=== PATIENT | female | born 1995 | race Caucasian/White ===

== ENCOUNTER 2018-07-14 07:10 | Inpatient (IN) | payer BC ==
[2018-07-14] MEDS ORDERED: Sodium Chloride 0.9% 2.5 ML Syringe FLUSH PRN (07:13)
[2018-07-14] MEDS ORDERED: Carboprost Tromethamine 250 MCG/1 ML Amp IM PRN (07:13)
[2018-07-14] MEDS ORDERED: Sodium Chloride 0.9% 10 ML SDV IV PRN (07:13)
[2018-07-14] MEDS ORDERED: Sodium Chloride 0.9% 10 ML Syringe FLUSH PRN (07:13)
[2018-07-14] MEDS ORDERED: Lidocaine 1% 50 ML MDV INJECT PRN (07:13)
[2018-07-14] MEDS ORDERED: Tranexamic Acid 1,000 MG in Sodium Chloride 0.9% 100 ML IV PRN (07:13)
[2018-07-14] MEDS ORDERED: Butorphanol 1 MG/ML SDV IVPUSH PRN (07:13)
[2018-07-14] MEDS ORDERED: Misoprostol 200 MCG Tab PO PRN (07:13)
[2018-07-14] MEDS ORDERED: Water For Irrigation,Sterile 1,000 ML Container IRR PRN (07:13)
[2018-07-14] MEDS ORDERED: Ondansetron 4 MG/2 ML SDV IV PRN (07:13)
[2018-07-14] MEDS ORDERED: Methylergonovine 0.2 MG/1 ML Amp IM PRN (07:13)
[2018-07-14] MEDS ORDERED: Oxytocin/0.9 % Sodium Chloride 30 UNIT/500 ML BAG IV SCH (07:15)
[2018-07-14] MEDS: Lactated Ringers 1,000 ML IV SCH ×3 (14:00→19:58)
--- NOTE | 2018-07-14 18:37 | PCM.PREANE ---
Preanesthetic Assessment - Anesthesia/Transfusion/Family Hx Anesthesia History: Prior Anesthesia Reaction Other Type of Anesthesia Reaction Comment: Patient states she had a hard time breathing Family History of Anesthesia Reaction: No Transfusion History: No Prior Transfusion(s) - Review of Systems General: No Symptoms Pulmonary: No Symptoms Cardiovascular: No Symptoms Gastrointestinal: No Symptoms Neurological: No Symptoms Other: Reports: None - Physical Assessment NPO Status Date: 07/14/18 Height: 5 ft 6 in Weight: 68.039 kg ASA Class: 2 Mental Status: Alert & Oriented x3 Airway Class: Mallampati = 2 Dentition: Reports: Normal Dentition Thyro-Mental Finger Breadths: 3 Mouth Opening Finger Breadths: 3 ROM/Head Extension: Full Lungs: Clear to Auscultation, Normal Respiratory Effort Cardiovascular: Regular Rate, Regular Rhythm - Lab Values: Laboratory Last Values WBC 14.46 K/uL (4.0-11.0) H 07/14/18 07:40 RBC 4.53 M/uL (4.30-5.90) 07/14/18 07:40 Hgb 12.1 g/dL (12.0-16.0) 07/14/18 07:40 Hct 37.0 % (36.0-46.0) 07/14/18 07:40 MCV 81.7 fL (80.0-98.0) 07/14/18 07:40 MCH 26.7 pg (27.0-32.0) L 07/14/18 07:40 MCHC 32.7 g/dL (31.0-37.0) 07/14/18 07:40 RDW Std Deviation 39.6 fl (28.0-62.0) 07/14/18 07:40 RDW Coeff of Susan 13 % (11.0-15.0) 07/14/18 07:40 Plt Count 300 K/uL (150-400) 07/14/18 07:40 MPV 11.20 fL (7.40-12.00) 07/14/18 07:40 Nucleated RBC % 0.0 /100WBC 07/14/18 07:40 Nucleated RBCs # 0 K/uL 07/14/18 07:40 Blood Type O POSITIVE 07/14/18 07:40 Antibody Screen NEGATIVE 07/14/18 07:40 - Allergies Allergies/Adverse Reactions: Allergies Allergy/AdvReac Type Severity Reaction Status Date / Time No Known Allergies Allergy Verified 06/29/18 08:30 - Acknowledgements Anesthesia Type Planned: Epidural Pt an Appropriate Candidate for the Planned Anesthesia: Yes Alternatives and Risks of Anesthesia Discussed w Pt/Guardian: Yes Pt/Guardian Understands and Agrees with Anesthesia Plan: Yes PreAnesthesia Questionnaire - Past Health History Medical/Surgical History: Denies Medical/Surgical History HEENT History: Reports: None Cardiovascular History: Reports: None Respiratory History: Reports: None Gastrointestinal History: Reports: GERD Genitourinary History: Reports: None [employer] History: Reports: Ectopic , , Spontaneous : 3 Para: 1 LMP (Approximate): Musculoskeletal History: Reports: None Neurological History: Reports: None Psychiatric History: Reports: None Endocrine/Metabolic History: Reports: None Hematologic History: Reports: Other (See Below) (MTHFR Gene carrier) Immunologic History: Reports: None Oncologic (Cancer) History: Reports: None Dermatologic History: Reports: None - Infectious Disease History Infectious Disease History: Reports: None - Past Surgical History HEENT Surgical History: Reports: Other (See Below) (Molar Extraction) Female Surgical History: Reports: Section (2015 x 1) - SUBSTANCE USE Smoking Status *Q: Former Smoker Tobacco Use Within Last Twelve Months: No Second Hand Smoke Exposure: No Recreational Drug Use History: No - HOME MEDS Home Medications: Home Meds Aspirin [Children's Aspirin] 1 tab PO DAILY 06/29/18 [History] Ondansetron [Zofran ODT] 1 tab PO PRN 06/29/18 [History] Oxymetazoline HCl [Vicks Sinex] 06/29/18 [History] PNV95/Ferrous Fumarate/FA [ Tablet] 1 tab PO DAILY 06/29/18 [History] - CURRENT (IN HOUSE) MEDS Current Meds: Current Medications Butorphanol Tartrate (Stadol) 1 mg IVPUSH Q1H PRN PRN Reason: Pain Last Admin: 07/14/18 15:30 Dose: 1 mg Carboprost Tromethamine (Hemabate Ds) 250 mcg IM ASDIRECTED PRN PRN Reason: Post Hemorrhage Lactated Ringer's (Ringers, Lactated) 1,000 mls @ 150 mls/hr IV ASDIRECTED [facility] Oxytocin/Sodium Chloride (Oxytocin 30 Unit/500 Ml-Ns) 30 unit in 500 mls @ 500 mls/hr IV TITRATE [facility] Tranexamic Acid 1,000 mg/ (Sodium Chloride) 110 mls @ 660 mls/hr IV ONETIME PRN PRN Reason: Bleeding Lidocaine HCl (Xylocaine 1%) 50 ml INJECT ONETIME PRN PRN Reason: Laceration repair Methylergonovine Maleate (Methergine) 0.2 mg IM ASDIRECTED PRN PRN Reason: Post Hemorrhage Misoprostol (Cytotec) 200 mcg PO ONETIME PRN PRN Reason: Post Hemorrhage Ondansetron HCl (Zofran) 4 mg IV Q6H PRN PRN Reason: Nausea/Vomiting Sodium Chloride (Saline Flush) 10 ml FLUSH ASDIRECTED PRN PRN Reason: Keep Vein Open Sodium Chloride (Saline Flush) 2.5 ml FLUSH ASDIRECTED PRN PRN Reason: Keep Vein Open Sodium Chloride (Normal Saline) 10 ml IV ASDIRECTED PRN PRN Reason: IV Use Sterile Water (Sterile Water For Irrigation) 1,000 ml IRR ASDIRECTED PRN PRN Reason: delivery
[2018-07-14] MEDS ORDERED: Ropivacaine HCl/PF 100 ML ONE (18:45)
[2018-07-14] MEDS ORDERED: fentaNYL 100 MCG/2 ML SDV ONE ×2 (18:45→23:17)
[2018-07-14] MEDS ORDERED: ePHEDrine 50 MG/ML SDV ONE ×2 (19:46→22:43)
[2018-07-14] MEDS ORDERED: Bupivacaine 0.5% 10 ML SDV ONE (22:30)
[2018-07-14] MEDS ORDERED: Citric Acid/Sodium Citrate Solution 30 ML Cup PO ONE (22:34)
[2018-07-14] MEDS ORDERED: ceFAZolin 1 GM in Premix Bag 1 BAG IV ONE (22:34)
[2018-07-14] MEDS ORDERED: Ondansetron 4 MG/2 ML SDV ONE (22:39)
[2018-07-14] MEDS ORDERED: Sodium Chloride 0.9% 20 ML ONE ×3 (22:43→23:18)
[2018-07-14] MEDS ORDERED: ceFAZolin 1 GM Vial ONE (22:43)
[2018-07-14] MEDS ORDERED: Oxytocin/0.9 % Sodium Chloride 30 UNIT/500 ML BAG ONE (22:49)
[2018-07-14] MEDS ORDERED: Morphine PF 10 MG/10 ML SDV ONE (23:09)
[2018-07-14] MEDS ORDERED: Lanolin 100% Cream 7 GM Tube TOP PRN (23:42)
[2018-07-14] MEDS ORDERED: Acetaminophen/oxyCODONE 325-5 MG Tab PO PRN (23:42)
[2018-07-14] MEDS ORDERED: Simethicone 80 MG Tab.Chew PO PRN (23:42)
[2018-07-14] MEDS ORDERED: Aluminum Hydroxide/Magnesium Hydroxide/Simethicone Susp 30 ML Cup PO PRN (23:42)
[2018-07-14] MEDS ORDERED: diphenhydrAMINE 50 MG/ML SDV IVPUSH PRN (23:42)
[2018-07-14] MEDS ORDERED: Ondansetron 4 MG/2 ML SDV IVPUSH PRN (23:42)
[2018-07-14] MEDS ORDERED: Bisacodyl 10 MG Supp RECTAL PRN (23:42)
[2018-07-14] MEDS ORDERED: Lactated Ringers 1,000 ML IV SCH (23:45)
--- NOTE | 2018-07-14 23:53 | PCM.OPNOTE ---
- General Post-Op/Procedure Note Date of Surgery/Procedure: 07/14/18 Operative Procedure(s): Repeat c section Findings: Viable female APGARs 8, 9 weight 3120gm, Intact placenta with 3 V cord Pre Op Diagnosis: 40/3 week IUP. Previous c section, desires TOLAC. Arrest of dilation Post-Op Diagnosis: Same Anesthesia Technique: Epidural Primary Surgeon: Kaleigh Ware Fluid Replacement, Intraop: 1,000 EBL in mLs: 500 Complications: None known Condition: Good Free Text/Narrative:: Dictation [id number]
[2018-07-15] MEDS: Ketorolac 30 MG/ML SDV IVPUSH SCH ×5 (00:01→23:41)
[2018-07-15] MEDS ORDERED: Naloxone 0.4 MG/ML Syringe IVPUSH PRN (00:46)
[2018-07-15] MEDS ORDERED: diphenhydrAMINE 50 MG/ML SDV IVPUSH PRN (00:46)
[2018-07-15] MEDS ORDERED: Nalbuphine 10 MG/1 ML Vial IVPUSH PRN (00:46)
--- NOTE | 2018-07-15 00:46 | PCM.POSTAN ---
POST ANESTHESIA ASSESSMENT - MENTAL STATUS Mental Status: Alert, Oriented - VITAL SIGNS Pulse Rate: 86 SaO2: 98 Resp Rate: 20 Blood Pressure: 109/62 - RESPIRATORY Respiratory Status: Respiratory Rate WNL, Airway Patent, O2 Saturation Stable - CARDIOVASCULAR CV Status: Pulse Rate WNL, Blood Pressure Stable - GASTROINTESTINAL GI Status: No Symptoms - PAIN Pain Score: 1 - POST OP HYDRATION Hydration Status: Adequate & Stable
--- NOTE | 2018-07-15 04:09 | OR ---
SURGEON: Kaleigh Ware M.D. DATE OF PROCEDURE: 07/14/2018 PREOPERATIVE DIAGNOSIS: 1. 40 and 3 weeks intrauterine . 2. Previous section, desires trial of labor after . 3. Arrest of dilation. POSTOPERATIVE DIAGNOSES: 1. 40 and 3-weeks intrauterine . 2. Previous section, desires trial of labor after . 3. Arrest of dilation. PROCEDURE PERFORMED: Repeat low-transverse section. ANESTHESIA: Epidural. ESTIMATED BLOOD LOSS: 500 mL. FLUIDS: 1000 mL of crystalloid in OR. FINDINGS: Viable female scores of 8 at 1 minute and 9 at 5 minutes. Weight of 3120 g on delivery, intact placenta, 3-vessel cord. Normal-appearing pelvis. COMPLICATIONS: None. DISPOSITION: The patient to PACU. to nursery. INDICATIONS: Melissa is a 23-year-old G2, P1, at 40 and 3 weeks gestational age who was admitted on the morning of 07/14/2018, electing to undergo amniotomy to see if this would help labor ensue. She did respond to the amniotomy, was found initially to be 1 to 2 cm and began having regular contractions, became increasingly uncomfortable throughout the afternoon, however, made minimal cervical change. She became uncomfortable and planned of receiving epidural in the early evening of 07/14/2018. Category 1 heart tones overall. Even with the epidural, however, there was minimal cervical change. She really did not progress beyond 2-3 cm, 70% effaced, -2 station. At this juncture, the patient is ready to proceed with delivery. Risks of the procedure have been discussed. Proper consent was obtained. DESCRIPTION OF PROCEDURE: The patient was taken to the operating room, where she underwent bolus of her epidural. She was placed in modified dorsal lithotomy position with leftward tilt and SCDs to lower extremities, [place] to gravity. She was prepped and draped in the usual sterile fashion. Received Ancef prophylactically. Time-out was performed. After being prepped and draped in usual sterile fashion, anesthesia was tested and found to be adequate. Previous Pfannenstiel scar was now excised. Subcutaneous tissue was incised down the level of the rectus fascia. The fascia was then incised in the midline lateralized on either side sharply and bluntly. The superior aspect of the fascia was tented up, dissected sharply and bluntly away from underlying muscles. Similar aspect was performed in the inferior aspect of the fascia. Rectus muscle was in the midline. The peritoneum was tented upward and entered. Rectus muscles and peritoneum were now lateralized bluntly. Uterine position and position palpated. Self- retaining retractor was gently placed. Uterovesical reflection was visualized. Bladder flap was created sharply and bluntly. Bladder was mobilized away from lower uterine segment. Low transverse hysterotomy was now performed. Uterine cavity was entered with blunt end of the scalpel. Clear fluid was still noted to be present. The hysterotomy was lateralized bluntly. The 's head was flexed and found to be in direct OP position. Fundal pressure was applied. Head was delivered followed by anterior shoulder, posterior shoulder, and remaining body without difficulty. The infant's oropharynx and nares bulb suctioned. Per the patient's request, delayed cord clamping was now performed. After the cord had been cut, was handed off to attending nursing staff. Cord arterial, cord venous, cord blood sampling were obtained. The placenta was delivered. Uterine cavity was cleared of all clot and debris. Hysterotomy was repaired using 0 Vicryl in continuous running locked fashion followed by re- imbricating layer in continuous running fashion. Any areas of oozing were cauterized. There were 2 areas of persistent bleeding along the midline and left lateral aspect that were replicated with [id number] suture x2. Hemostasis thereafter evident. Posterior aspect of the uterus was inspected with no defects or hematomas found be forming. Region was well irrigated and suction dried. Uterus returned to the abdominal cavity. Colonic gutters were cleared of all clot and debris, well irrigated and suction dried. The self- retaining retractor gently removed. Bladder blade was placed. Hysterotomy was inspected and found to be hemostatic. The bladder blade was removed. Rectus muscle and peritoneum were reapproximated using 0 Vicryl in inverted mattress suture technique. Anterior aspect of the muscle and posterior aspect of the fascia closely inspected. Any areas of oozing were cauterized. The rectus fascia was reapproximated using 0 Vicryl in continuous running fashion beginning laterally in the side and meeting in the midline. Subcutaneous tissues were irrigated and suction dried. Any areas of oozing were cauterized. The deep subcutaneous tissues were reapproximated using 3-0 plain in continuous running fashion. The skin edges were now reapproximated using 3-0 Vicryl in a Ferny needle subcuticular fashion. Half-inch Steri-Strips with Mastisol were now placed. The uterus remained firm. Sponge, instruments and needle counts were correct x2. The patient tolerated the procedure well. She will go to PACU in stable condition and infant to nursery. NEERAJ / GONSALO /[id number]
--- NOTE | 2018-07-15 07:27 | PCM48HPAN ---
Post Anesthesia Note - EVALUATION WITHIN 48HRS OF ANESTHETIC Vital Signs in Normal Range: Yes Patient Participated in Evaluation: Yes Respiratory Function Stable: Yes Airway Patent: Yes Cardiovascular Function Stable: Yes Hydration Status Stable: Yes Pain Control Satisfactory: Yes Nausea and Vomiting Control Satisfactory: Yes Mental Status Recovered: Yes Pulse Rate: 86 Resp Rate: 16 Blood Pressure: 109/62
--- NOTE | 2018-07-15 08:42 | PCM.PNPP ---
- General Info Date of Service: 07/22/18 Functional Status: Reports: Pain Controlled, Tolerating Diet, Ambulating, Urinating - Review of Systems General: Reports: Fatigue. Denies: Fever, Weakness Pulmonary: Denies: Shortness of Breath Cardiovascular: Denies: Chest Pain, Palpitations, Lightheadedness Gastrointestinal: Reports: Abdominal Pain (controlled overall from incision). Denies: Nausea, Vomiting Genitourinary: Denies: Flank Pain Musculoskeletal: Reports: No Symptoms Skin: Reports: No Symptoms Neurological: Reports: No Symptoms - General Info Date of Service: 07/15/18 - Patient Data Vital Signs - Most Recent: Last Vital Signs Temp 36.2 C 07/15/18 07:15 Pulse 86 07/15/18 07:26 Resp 16 07/15/18 07:26 BP 109/62 07/15/18 07:26 Pulse Ox 96 07/15/18 07:15 Weight - Most Recent: 68.039 kg I&O - Last 24 Hours: Intake & Output 07/14/18 07/15/18 07/15/18 22:59 06:59 14:59 Intake Total 3500 Output Total 850 Balance 2650 Lab Results - Last 24 Hours: Laboratory Results - last 24 hr 07/14/18 07/14/18 07/15/18 Range/Units 07:40 23:02 05:30 Hgb 10.6 L (12.0-16.0) g/dL Hct 33.5 L (36.0-46.0) % Cord ABG pH 7.208 (7.18-7.38) Cord ABG Base Excess -6 (-10--2) Cord VBG pH 7.316 (7.25-7.45) Cord VBG Base Excess -4 (-10--2) Blood Type O POSITIVE Antibody Screen NEGATIVE Med Orders - Current: Current Medications Al Hydroxide/Mg Hydroxide (Mag-Al Plus) 30 ml PO Q8H PRN PRN Reason: Heartburn Bisacodyl (Dulcolax) 10 mg RECTAL ONETIME PRN PRN Reason: Constipation Carboprost Tromethamine (Hemabate Ds) 250 mcg IM ASDIRECTED PRN PRN Reason: Post Hemorrhage Diphenhydramine HCl (Benadryl) 25 mg IVPUSH Q6H PRN PRN Reason: Itching or Nausea Diphenhydramine HCl (Benadryl) 25 mg IVPUSH Q4H PRN PRN Reason: Itching Stop: 07/16/18 00:46 Last Admin: 07/15/18 01:25 Dose: 25 mg Docusate Sodium (Colace) 100 mg PO BID [facility] Emollient Ointment (Lansinoh Hpa) 0 gm TOP ASDIRECTED PRN PRN Reason: Sore Nipples Lactated Ringer's (Ringers, Lactated) 1,000 mls @ 150 mls/hr IV ASDIRECTED [facility] Last Admin: 07/14/18 19:58 Dose: 999 mls/hr Oxytocin/Sodium Chloride (Oxytocin 30 Unit/500 Ml-Ns) 30 unit in 500 mls @ 500 mls/hr IV TITRATE [facility] Tranexamic Acid 1,000 mg/ (Sodium Chloride) 110 mls @ 660 mls/hr IV ONETIME PRN PRN Reason: Bleeding Lactated Ringer's (Ringers, Lactated) 1,000 mls @ 125 mls/hr IV ASDIRECTED [facility] Ibuprofen (Motrin) 800 mg PO Q8H PRN PRN Reason: mild pain or fever Ketorolac Tromethamine (Toradol) 30 mg IVPUSH Q6H [facility] Stop: 07/15/18 23:46 Last Admin: 07/15/18 06:14 Dose: 30 mg Methylergonovine Maleate (Methergine) 0.2 mg IM ASDIRECTED PRN PRN Reason: Post Hemorrhage Nalbuphine HCl (Nubain) 5 mg IVPUSH Q3H PRN PRN Reason: Pruritis Stop: 07/16/18 00:46 Last Admin: 07/15/18 03:55 Dose: 5 mg Naloxone HCl (Narcan) 0.1 mg IVPUSH ONETIME PRN PRN Reason: Respiratory Depression Stop: 07/16/18 00:46 Ondansetron HCl (Zofran) 4 mg IV Q6H PRN PRN Reason: Nausea/Vomiting Ondansetron HCl (Zofran) 4 mg IVPUSH Q4H PRN PRN Reason: Nausea/Vomiting Oxycodone/Acetaminophen (Percocet 325-5 Mg) 1 tab PO Q4H PRN PRN Reason: Pain (moderate 4-6) Oxycodone/Acetaminophen (Percocet 325-5 Mg) 2 tab PO Q4H PRN PRN Reason: Pain (moderate 4-6) Simethicone (Simethicone) 80 mg PO Q4H PRN PRN Reason: Gas Sodium Chloride (Saline Flush) 10 ml FLUSH ASDIRECTED PRN PRN Reason: Keep Vein Open Sodium Chloride (Saline Flush) 2.5 ml FLUSH ASDIRECTED PRN PRN Reason: Keep Vein Open Sodium Chloride (Normal Saline) 10 ml IV ASDIRECTED PRN PRN Reason: IV Use Discontinued Medications Bupivacaine HCl (Sensorcaine-Mpf 0.5%) Confirm Administered Dose 20 ml .ROUTE .STK-MED ONE Stop: 07/14/18 22:31 Last Admin: 07/15/18 07:48 Dose: Not Given Butorphanol Tartrate (Stadol) 1 mg IVPUSH Q1H PRN PRN Reason: Pain Last Admin: 07/14/18 15:30 Dose: 1 mg Cefazolin Sodium (Ancef) Confirm Administered Dose 2 gm .ROUTE .STK-MED ONE Stop: 07/14/18 22:44 Citric Acid/Sodium Citrate (Bicitra Solution) 30 ml PO ONETIME ONE Stop: 07/14/18 22:35 Last Admin: 07/15/18 07:48 Dose: Not Given Ephedrine Sulfate (Ephedrine Sulfate) Confirm Administered Dose 50 mg .ROUTE .STK-MED ONE Stop: 07/14/18 19:47 Last Admin: 07/15/18 07:48 Dose: Not Given Ephedrine Sulfate (Ephedrine Sulfate) Confirm Administered Dose 50 mg .ROUTE .STK-MED ONE Stop: 07/14/18 22:44 Fentanyl (Sublimaze) Confirm Administered Dose 100 mcg .ROUTE .STK-MED ONE Stop: 07/14/18 18:46 Last Admin: 07/15/18 07:48 Dose: Not Given Fentanyl (Sublimaze) Confirm Administered Dose 100 mcg .ROUTE .STK-MED ONE Stop: 07/14/18 23:18 Fentanyl/Bupivacaine HCl (Ekjncutw-Sewng-Fy 2 Mcg/Ml-0.125%) Confirm Administered Dose 100 mls @ as directed .ROUTE .STK-MED ONE Stop: 07/14/18 18:43 Last Admin: 07/15/18 07:48 Dose: Not Given Fentanyl/Bupivacaine HCl (Gswwykqq-Xppwx-Xw 2 Mcg/Ml-0.125%) Confirm Administered Dose 100 mls @ as directed .ROUTE .STK-MED ONE Stop: 07/14/18 18:44 Last Admin: 07/15/18 07:48 Dose: Not Given Ropivacaine (Naropin 0.2%) Confirm Administered Dose 100 mls @ as directed .ROUTE .STK-MED ONE Stop: 07/14/18 18:46 Last Admin: 07/15/18 07:48 Dose: Not Given Cefazolin Sodium/Dextrose 1 gm (/ Premix) 50 mls @ 100 mls/hr IV ONETIME ONE Stop: 07/14/18 23:03 Last Admin: 07/15/18 07:48 Dose: Not Given Sodium Chloride (Normal Saline) Confirm Administered Dose 20 mls @ as directed .ROUTE .STK-MED ONE Stop: 07/14/18 22:44 Sodium Chloride (Normal Saline) Confirm Administered Dose 20 mls @ as directed .ROUTE .STK-MED ONE Stop: 07/14/18 22:44 Oxytocin/Sodium Chloride (Oxytocin 30 Unit/500 Ml-Ns) Confirm Administered Dose 30 unit in 500 mls @ as directed .ROUTE .STK-MED ONE Stop: 07/14/18 22:50 Sodium Chloride (Normal Saline) Confirm Administered Dose 20 mls @ as directed .ROUTE .STK-MED ONE Stop: 07/14/18 23:19 Lidocaine HCl (Xylocaine 1%) 50 ml INJECT ONETIME PRN PRN Reason: Laceration repair Misoprostol (Cytotec) 200 mcg PO ONETIME PRN PRN Reason: Post Hemorrhage Morphine Sulfate (Duramorph Pf) Confirm Administered Dose 10 mg .ROUTE .STK-MED ONE Stop: 07/14/18 23:10 Ondansetron HCl (Zofran) Confirm Administered Dose 4 mg .ROUTE .STK-MED ONE Stop: 07/14/18 22:40 Sterile Water (Sterile Water For Irrigation) 1,000 ml IRR ASDIRECTED PRN PRN Reason: delivery - Interaction Support Person: , Mother - Recovery Exam Fundal Tone: Firm Fundal Level: At Umbilicus Fundal Placement: Midline Lochia Amount: Scant Lochia Color: Rubra/Red Bladder Status: Indwelling Catheter in Place - Exam General: Alert, Oriented Lungs: Normal Respiratory Effort Cardiovascular: Regular Rate, Regular Rhythm GI/Abdominal Exam: Normal Bowel Sounds, Soft Extremities: Pedal Edema (trace). No: Ubaldo's Sign Skin: Warm, Dry, Intact Wound/Incisions: Dressing Dry and Intact Neurological: No New Focal Deficit Psy/Mental Status: Alert, Normal Affect - Problem List & Annotations (1) Arrest of dilation, delivered, current hospitalization SNOMED Code(s): 51628022 Code(s): O62.1 - SECONDARY UTERINE INERTIA Status: Acute Current Visit: Yes - Problem List Review Problem List Initiated/Reviewed/Updated: Yes - My Orders Last 24 Hours: My Active Orders 07/14/18 23:42 Notify Provider Intake and Out [RC] ASDIRECTED Notify Provider Vital Signs [RC] ASDIRECTED Acetaminophen/oxyCODONE [Percocet 325-5 MG] 1 tab PO Q4H PRN Acetaminophen/oxyCODONE [Percocet 325-5 MG] 2 tab PO Q4H PRN Alum Hydrox/Mag Hydrox/Simeth [Mag-Al Plus] 30 ml PO Q8H PRN Bisacodyl [Dulcolax] 10 mg RECTAL ONETIME PRN Lanolin [Lansinoh HPA] See Dose Instructions TOP ASDIRECTED PRN Ondansetron [Zofran] 4 mg IVPUSH Q4H PRN Simethicone 80 mg PO Q4H PRN diphenhydrAMINE [Benadryl] 25 mg IVPUSH Q6H PRN Abdominal Binder [OM.PC] Routine Heat Therapy [OM.PC] Routine Ice Therapy [OM.PC] Routine 07/14/18 23:43 Patient Status [ADT] Routine Ambulate [RC] PER UNIT ROUTINE Antiembolic Devices [RC] PER UNIT ROUTINE Communication Order [RC] PER UNIT ROUTINE Communication Order [RC] PER UNIT ROUTINE Communication Order [RC] Per Unit Routine May Shower [RC] ASDIRECTED RT Incentive Spirometry [RC] Q2HWA Vital Signs [RC] PER UNIT ROUTINE Assess Lochia [WOMSER] Per Unit Routine Assess Uterine Involution [WOMSER] Per Unit Routine Breast Pump [WOMSER] Per Unit Routine Peripheral IV Discontinue [OM.PC] Routine Sequential Compression Device [OM.PC] Per Unit Routine 07/14/18 23:45 Ketorolac [Toradol] 30 mg IVPUSH Q6H Lactated Ringers [Ringers, Lactated] 1,000 ml IV ASDIRECTED 07/14/18 Dinner Regular Diet [DIET] 07/15/18 09:00 Docusate Sodium [Colace] 100 mg PO BID 07/16/18 05:46 Ibuprofen [Motrin] 800 mg PO Q8H PRN - Assessment Assessment:: POD 1 status post repeat c section - Plan Plan:: Continue postoperative cares. Ambulate halls today, may remove catheter.
[2018-07-15] MEDS: Docusate Sodium 100 MG Cap PO SCH ×2 (12:27→20:59)
[2018-07-16] MEDS: Acetaminophen/oxyCODONE 325-5 MG Tab PO PRN ×4 (02:43→21:33)
[2018-07-16] MEDS: Ibuprofen 800 MG Tab PO PRN ×2 (06:28→15:42)
--- NOTE | 2018-07-16 09:00 | PCM.PNPP ---
- General Info Date of Service: 07/16/18 Functional Status: Reports: Pain Controlled, Tolerating Diet, Ambulating, Urinating - Review of Systems General: Denies: Fever, Weakness Pulmonary: Denies: Shortness of Breath Cardiovascular: Denies: Chest Pain, Palpitations, Lightheadedness Gastrointestinal: Reports: Abdominal Pain (incisional pain well controlled). Denies: Nausea, Vomiting Genitourinary: Denies: Flank Pain Musculoskeletal: Reports: No Symptoms Skin: Reports: No Symptoms Neurological: Reports: No Symptoms Psychiatric: Reports: No Symptoms - General Info Date of Service: 07/16/18 - Patient Data Vital Signs - Most Recent: Last Vital Signs Temp 36.3 C 07/16/18 07:36 Pulse 64 07/16/18 07:36 Resp 15 07/16/18 07:36 BP 101/55 L 07/16/18 07:36 Pulse Ox 97 07/16/18 07:36 Weight - Most Recent: 68.039 kg Med Orders - Current: Current Medications Al Hydroxide/Mg Hydroxide (Mag-Al Plus) 30 ml PO Q8H PRN PRN Reason: Heartburn Bisacodyl (Dulcolax) 10 mg RECTAL ONETIME PRN PRN Reason: Constipation Carboprost Tromethamine (Hemabate Ds) 250 mcg IM ASDIRECTED PRN PRN Reason: Post Hemorrhage Diphenhydramine HCl (Benadryl) 25 mg IVPUSH Q6H PRN PRN Reason: Itching or Nausea Docusate Sodium (Colace) 100 mg PO BID [facility] Last Admin: 07/15/18 20:59 Dose: 100 mg Emollient Ointment (Lansinoh Hpa) 0 gm TOP ASDIRECTED PRN PRN Reason: Sore Nipples Lactated Ringer's (Ringers, Lactated) 1,000 mls @ 150 mls/hr IV ASDIRECTED [facility] Last Admin: 07/14/18 19:58 Dose: 999 mls/hr Oxytocin/Sodium Chloride (Oxytocin 30 Unit/500 Ml-Ns) 30 unit in 500 mls @ 500 mls/hr IV TITRATE [facility] Tranexamic Acid 1,000 mg/ (Sodium Chloride) 110 mls @ 660 mls/hr IV ONETIME PRN PRN Reason: Bleeding Lactated Ringer's (Ringers, Lactated) 1,000 mls @ 125 mls/hr IV ASDIRECTED [facility] Ibuprofen (Motrin) 800 mg PO Q8H PRN PRN Reason: mild pain or fever Last Admin: 07/16/18 06:28 Dose: 800 mg Methylergonovine Maleate (Methergine) 0.2 mg IM ASDIRECTED PRN PRN Reason: Post Hemorrhage Ondansetron HCl (Zofran) 4 mg IV Q6H PRN PRN Reason: Nausea/Vomiting Ondansetron HCl (Zofran) 4 mg IVPUSH Q4H PRN PRN Reason: Nausea/Vomiting Oxycodone/Acetaminophen (Percocet 325-5 Mg) 1 tab PO Q4H PRN PRN Reason: Pain (moderate 4-6) Last Admin: 07/16/18 02:43 Dose: 1 tab Oxycodone/Acetaminophen (Percocet 325-5 Mg) 2 tab PO Q4H PRN PRN Reason: Pain (moderate 4-6) Last Admin: 07/15/18 22:36 Dose: 2 tab Simethicone (Simethicone) 80 mg PO Q4H PRN PRN Reason: Gas Sodium Chloride (Saline Flush) 10 ml FLUSH ASDIRECTED PRN PRN Reason: Keep Vein Open Sodium Chloride (Saline Flush) 2.5 ml FLUSH ASDIRECTED PRN PRN Reason: Keep Vein Open Sodium Chloride (Normal Saline) 10 ml IV ASDIRECTED PRN PRN Reason: IV Use Discontinued Medications Bupivacaine HCl (Sensorcaine-Mpf 0.5%) Confirm Administered Dose 20 ml .ROUTE .STK-MED ONE Stop: 07/14/18 22:31 Last Admin: 07/15/18 07:48 Dose: Not Given Butorphanol Tartrate (Stadol) 1 mg IVPUSH Q1H PRN PRN Reason: Pain Last Admin: 07/14/18 15:30 Dose: 1 mg Cefazolin Sodium (Ancef) Confirm Administered Dose 2 gm .ROUTE .STK-MED ONE Stop: 07/14/18 22:44 Citric Acid/Sodium Citrate (Bicitra Solution) 30 ml PO ONETIME ONE Stop: 07/14/18 22:35 Last Admin: 07/15/18 07:48 Dose: Not Given Diphenhydramine HCl (Benadryl) 25 mg IVPUSH Q4H PRN PRN Reason: Itching Stop: 07/16/18 00:46 Last Admin: 07/15/18 01:25 Dose: 25 mg Ephedrine Sulfate (Ephedrine Sulfate) Confirm Administered Dose 50 mg .ROUTE .ST-MED ONE Stop: 07/14/18 19:47 Last Admin: 07/15/18 07:48 Dose: Not Given Ephedrine Sulfate (Ephedrine Sulfate) Confirm Administered Dose 50 mg .ROUTE .ST-MED ONE Stop: 07/14/18 22:44 Fentanyl (Sublimaze) Confirm Administered Dose 100 mcg .ROUTE .ST-MED ONE Stop: 07/14/18 18:46 Last Admin: 07/15/18 07:48 Dose: Not Given Fentanyl (Sublimaze) Confirm Administered Dose 100 mcg .ROUTE .ST-MED ONE Stop: 07/14/18 23:18 Fentanyl/Bupivacaine HCl (Aingqlje-Hvcja-Ig 2 Mcg/Ml-0.125%) Confirm Administered Dose 100 mls @ as directed .ROUTE .[facility]-MED ONE Stop: 07/14/18 18:43 Last Admin: 07/15/18 07:48 Dose: Not Given Fentanyl/Bupivacaine HCl (Yrjmcmdc-Hujye-Tb 2 Mcg/Ml-0.125%) Confirm Administered Dose 100 mls @ as directed .ROUTE .[facility]-MED ONE Stop: 07/14/18 18:44 Last Admin: 07/15/18 07:48 Dose: Not Given Ropivacaine (Naropin 0.2%) Confirm Administered Dose 100 mls @ as directed .ROUTE .[facility]-MED ONE Stop: 07/14/18 18:46 Last Admin: 07/15/18 07:48 Dose: Not Given Cefazolin Sodium/Dextrose 1 gm (/ Premix) 50 mls @ 100 mls/hr IV ONETIME ONE Stop: 07/14/18 23:03 Last Admin: 07/15/18 07:48 Dose: Not Given Sodium Chloride (Normal Saline) Confirm Administered Dose 20 mls @ as directed .ROUTE .ST-MED ONE Stop: 07/14/18 22:44 Sodium Chloride (Normal Saline) Confirm Administered Dose 20 mls @ as directed .ROUTE .ST-MED ONE Stop: 07/14/18 22:44 Oxytocin/Sodium Chloride (Oxytocin 30 Unit/500 Ml-Ns) Confirm Administered Dose 30 unit in 500 mls @ as directed .ROUTE .STK-MED ONE Stop: 07/14/18 22:50 Sodium Chloride (Normal Saline) Confirm Administered Dose 20 mls @ as directed .ROUTE .STK-MED ONE Stop: 07/14/18 23:19 Ketorolac Tromethamine (Toradol) 30 mg IVPUSH Q6H [facility] Stop: 07/15/18 23:46 Last Admin: 07/15/18 23:41 Dose: 30 mg Lidocaine HCl (Xylocaine 1%) 50 ml INJECT ONETIME PRN PRN Reason: Laceration repair Misoprostol (Cytotec) 200 mcg PO ONETIME PRN PRN Reason: Post Hemorrhage Morphine Sulfate (Duramorph Pf) Confirm Administered Dose 10 mg .ROUTE .STK-MED ONE Stop: 07/14/18 23:10 Nalbuphine HCl (Nubain) 5 mg IVPUSH Q3H PRN PRN Reason: Pruritis Stop: 07/16/18 00:46 Last Admin: 07/15/18 03:55 Dose: 5 mg Naloxone HCl (Narcan) 0.1 mg IVPUSH ONETIME PRN PRN Reason: Respiratory Depression Stop: 07/16/18 00:46 Ondansetron HCl (Zofran) Confirm Administered Dose 4 mg .ROUTE .STK-MED ONE Stop: 07/14/18 22:40 Sterile Water (Sterile Water For Irrigation) 1,000 ml IRR ASDIRECTED PRN PRN Reason: delivery - Infant Interaction Support Person: , Mother - Recovery Exam Fundal Tone: Firm Fundal Level: 2 Fingerbreadths Below Umbilicus Fundal Placement: Midline Lochia Amount: Scant Lochia Color: Rubra/Red Perineum Description: Intact, Minimal Bruising/Swelling Episiotomy/Laceration: None Bladder Status: Voiding Urinary Elimination: Voided - Exam HEENT: Pupils Equal Lungs: Normal Respiratory Effort Cardiovascular: Regular Rate, Regular Rhythm GI/Abdominal Exam: Normal Bowel Sounds, Soft Extremities: Pedal Edema (trace). No: Ubaldo's Sign, Increased Warmth, Mottled, Redness Skin: Warm, Dry, Intact Wound/Incisions: Healing Well, No Drainage. No: Erythema Neurological: No New Focal Deficit Psy/Mental Status: Alert, Normal Affect, Normal Mood - Problem List & Annotations (1) Arrest of dilation, delivered, current hospitalization SNOMED Code(s): 24404458 Code(s): O62.1 - SECONDARY UTERINE INERTIA Status: Acute Current Visit: Yes - Problem List Review Problem List Initiated/Reviewed/Updated: Yes - My Orders Last 24 Hours: My Active Orders 07/15/18 09:00 Docusate Sodium [Colace] 100 mg PO BID 07/16/18 05:46 Ibuprofen [Motrin] 800 mg PO Q8H PRN - Assessment Assessment:: POD 2 status post repeat c section - Plan Plan:: Continue postoperative cares. Continue to ambulate halls and work with feeding. Infant is a bit jaundiced.
[2018-07-16] MEDS: Docusate Sodium 100 MG Cap PO SCH ×2 (10:02→21:34)
[2018-07-17] MEDS: Ibuprofen 800 MG Tab PO PRN ×2 (05:00→15:51)
--- NOTE | 2018-07-17 08:43 | PCM.PNPP ---
- General Info Date of Service: 07/17/18 Functional Status: Reports: Pain Controlled, Tolerating Diet, Ambulating, Urinating - Review of Systems General: Denies: Fever, Weakness, Fatigue Pulmonary: Denies: Shortness of Breath Cardiovascular: Denies: Chest Pain, Palpitations, Lightheadedness Gastrointestinal: Reports: Abdominal Pain (incisional pain well controlled with oral pain meds). Denies: Nausea, Vomiting Genitourinary: Reports: No Symptoms Skin: Reports: No Symptoms Neurological: Reports: No Symptoms Psychiatric: Reports: No Symptoms - General Info Date of Service: 07/17/18 - Patient Data Vital Signs - Most Recent: Last Vital Signs Temp 36.6 C 07/17/18 07:44 Pulse 73 07/17/18 07:44 Resp 18 07/17/18 07:44 BP 114/56 L 07/17/18 07:44 Pulse Ox 97 07/17/18 07:44 Weight - Most Recent: 68.039 kg Med Orders - Current: Current Medications Al Hydroxide/Mg Hydroxide (Mag-Al Plus) 30 ml PO Q8H PRN PRN Reason: Heartburn Bisacodyl (Dulcolax) 10 mg RECTAL ONETIME PRN PRN Reason: Constipation Carboprost Tromethamine (Hemabate Ds) 250 mcg IM ASDIRECTED PRN PRN Reason: Post Hemorrhage Diphenhydramine HCl (Benadryl) 25 mg IVPUSH Q6H PRN PRN Reason: Itching or Nausea Docusate Sodium (Colace) 100 mg PO BID [facility] Last Admin: 07/16/18 21:34 Dose: 100 mg Emollient Ointment (Lansinoh Hpa) 0 gm TOP ASDIRECTED PRN PRN Reason: Sore Nipples Lactated Ringer's (Ringers, Lactated) 1,000 mls @ 150 mls/hr IV ASDIRECTED [facility] Last Admin: 07/14/18 19:58 Dose: 999 mls/hr Oxytocin/Sodium Chloride (Oxytocin 30 Unit/500 Ml-Ns) 30 unit in 500 mls @ 500 mls/hr IV TITRATE [facility] Tranexamic Acid 1,000 mg/ (Sodium Chloride) 110 mls @ 660 mls/hr IV ONETIME PRN PRN Reason: Bleeding Lactated Ringer's (Ringers, Lactated) 1,000 mls @ 125 mls/hr IV ASDIRECTED [facility] Ibuprofen (Motrin) 800 mg PO Q8H PRN PRN Reason: mild pain or fever Last Admin: 07/17/18 05:00 Dose: 800 mg Methylergonovine Maleate (Methergine) 0.2 mg IM ASDIRECTED PRN PRN Reason: Post Hemorrhage Ondansetron HCl (Zofran) 4 mg IV Q6H PRN PRN Reason: Nausea/Vomiting Ondansetron HCl (Zofran) 4 mg IVPUSH Q4H PRN PRN Reason: Nausea/Vomiting Oxycodone/Acetaminophen (Percocet 325-5 Mg) 1 tab PO Q4H PRN PRN Reason: Pain (moderate 4-6) Last Admin: 07/16/18 21:33 Dose: 1 tab Oxycodone/Acetaminophen (Percocet 325-5 Mg) 2 tab PO Q4H PRN PRN Reason: Pain (moderate 4-6) Last Admin: 07/15/18 22:36 Dose: 2 tab Simethicone (Simethicone) 80 mg PO Q4H PRN PRN Reason: Gas Sodium Chloride (Saline Flush) 10 ml FLUSH ASDIRECTED PRN PRN Reason: Keep Vein Open Sodium Chloride (Saline Flush) 2.5 ml FLUSH ASDIRECTED PRN PRN Reason: Keep Vein Open Sodium Chloride (Normal Saline) 10 ml IV ASDIRECTED PRN PRN Reason: IV Use Discontinued Medications Bupivacaine HCl (Sensorcaine-Mpf 0.5%) Confirm Administered Dose 20 ml .ROUTE .STK-MED ONE Stop: 07/14/18 22:31 Last Admin: 07/15/18 07:48 Dose: Not Given Butorphanol Tartrate (Stadol) 1 mg IVPUSH Q1H PRN PRN Reason: Pain Last Admin: 07/14/18 15:30 Dose: 1 mg Cefazolin Sodium (Ancef) Confirm Administered Dose 2 gm .ROUTE .STK-MED ONE Stop: 07/14/18 22:44 Citric Acid/Sodium Citrate (Bicitra Solution) 30 ml PO ONETIME ONE Stop: 07/14/18 22:35 Last Admin: 07/15/18 07:48 Dose: Not Given Diphenhydramine HCl (Benadryl) 25 mg IVPUSH Q4H PRN PRN Reason: Itching Stop: 07/16/18 00:46 Last Admin: 07/15/18 01:25 Dose: 25 mg Ephedrine Sulfate (Ephedrine Sulfate) Confirm Administered Dose 50 mg .ROUTE .ST-MED ONE Stop: 07/14/18 19:47 Last Admin: 07/15/18 07:48 Dose: Not Given Ephedrine Sulfate (Ephedrine Sulfate) Confirm Administered Dose 50 mg .ROUTE .ST-MED ONE Stop: 07/14/18 22:44 Fentanyl (Sublimaze) Confirm Administered Dose 100 mcg .ROUTE .ST-MED ONE Stop: 07/14/18 18:46 Last Admin: 07/15/18 07:48 Dose: Not Given Fentanyl (Sublimaze) Confirm Administered Dose 100 mcg .ROUTE .ST-MED ONE Stop: 07/14/18 23:18 Fentanyl/Bupivacaine HCl (Wqzrtsgi-Vmcro-Ig 2 Mcg/Ml-0.125%) Confirm Administered Dose 100 mls @ as directed .ROUTE .[facility]-MED ONE Stop: 07/14/18 18:43 Last Admin: 07/15/18 07:48 Dose: Not Given Fentanyl/Bupivacaine HCl (Jwfynxgx-Yjnkq-Ph 2 Mcg/Ml-0.125%) Confirm Administered Dose 100 mls @ as directed .ROUTE .[facility]-MED ONE Stop: 07/14/18 18:44 Last Admin: 07/15/18 07:48 Dose: Not Given Ropivacaine (Naropin 0.2%) Confirm Administered Dose 100 mls @ as directed .ROUTE .[facility]-MED ONE Stop: 07/14/18 18:46 Last Admin: 07/15/18 07:48 Dose: Not Given Cefazolin Sodium/Dextrose 1 gm (/ Premix) 50 mls @ 100 mls/hr IV ONETIME ONE Stop: 07/14/18 23:03 Last Admin: 07/15/18 07:48 Dose: Not Given Sodium Chloride (Normal Saline) Confirm Administered Dose 20 mls @ as directed .ROUTE .ST-MED ONE Stop: 07/14/18 22:44 Sodium Chloride (Normal Saline) Confirm Administered Dose 20 mls @ as directed .ROUTE .ST-MED ONE Stop: 07/14/18 22:44 Oxytocin/Sodium Chloride (Oxytocin 30 Unit/500 Ml-Ns) Confirm Administered Dose 30 unit in 500 mls @ as directed .ROUTE .STK-MED ONE Stop: 07/14/18 22:50 Sodium Chloride (Normal Saline) Confirm Administered Dose 20 mls @ as directed .ROUTE .STK-MED ONE Stop: 07/14/18 23:19 Ketorolac Tromethamine (Toradol) 30 mg IVPUSH Q6H [facility] Stop: 07/15/18 23:46 Last Admin: 07/15/18 23:41 Dose: 30 mg Lidocaine HCl (Xylocaine 1%) 50 ml INJECT ONETIME PRN PRN Reason: Laceration repair Misoprostol (Cytotec) 200 mcg PO ONETIME PRN PRN Reason: Post Hemorrhage Morphine Sulfate (Duramorph Pf) Confirm Administered Dose 10 mg .ROUTE .STK-MED ONE Stop: 07/14/18 23:10 Nalbuphine HCl (Nubain) 5 mg IVPUSH Q3H PRN PRN Reason: Pruritis Stop: 07/16/18 00:46 Last Admin: 07/15/18 03:55 Dose: 5 mg Naloxone HCl (Narcan) 0.1 mg IVPUSH ONETIME PRN PRN Reason: Respiratory Depression Stop: 07/16/18 00:46 Ondansetron HCl (Zofran) Confirm Administered Dose 4 mg .ROUTE .STK-MED ONE Stop: 07/14/18 22:40 Sterile Water (Sterile Water For Irrigation) 1,000 ml IRR ASDIRECTED PRN PRN Reason: delivery - Interaction Support Person: , Mother - Recovery Exam Fundal Tone: Firm Fundal Level: 1 Fingerbreadths Below Umbilicus Fundal Placement: Midline Lochia Amount: Scant Lochia Color: Rubra/Red Perineum Description: Intact, Minimal Bruising/Swelling Episiotomy/Laceration: None Bladder Status: Voiding Urinary Elimination: Voided - Exam General: Alert, Oriented Lungs: Normal Respiratory Effort Cardiovascular: Regular Rate, Regular Rhythm GI/Abdominal Exam: Normal Bowel Sounds, Soft Extremities: Pedal Edema (trace). No: Ubaldo's Sign Skin: Warm, Dry, Intact Wound/Incisions: Healing Well, No Drainage. No: Erythema Neurological: No New Focal Deficit Psy/Mental Status: Alert, Normal Affect, Normal Mood - Problem List & Annotations (1) Arrest of dilation, delivered, current hospitalization SNOMED Code(s): 16997674 Code(s): O62.1 - SECONDARY UTERINE INERTIA Status: Acute Current Visit: Yes - Problem List Review Problem List Initiated/Reviewed/Updated: Yes - My Orders Last 24 Hours: My Active Orders 07/17/18 08:41 Ready for Discharge [RC] PER UNIT ROUTINE - Assessment Assessment:: POD 3 status post repeat c section - Plan Plan:: Discharge to home today. Discharge instructions reviewed. Follow up at [facility] 2 and 6 weeks. Infection and bleeding warnings reviewed.
[2018-07-17] MEDS: Docusate Sodium 100 MG Cap PO SCH (09:58)
[2018-07-17] MEDS: Acetaminophen/oxyCODONE 325-5 MG Tab PO PRN (12:18)
== END 2018-07-17 17:55 | disposition home or self-care (01) | DRG 540 ==
LOC: MW.OBCHECK 07:10 → MW.OB 07:11 → MW.OBCHECK 07:14 → OBSVTOIN 23:43 → MW.OB 07-15 02:54
PROVIDERS: ADMIT Obstetrics & Gynecology; ATTEND Obstetrics & Gynecology
PROC: 10D00Z1 Extraction of Products of Conception, Low, Open Approach (ICD-10-PCS; principal; 2018-07-14)
DX: O34.211 Maternal care for low transverse scar from previous cesarean delivery (principal); O48.0 Post-term pregnancy; Z3A.40 40 weeks gestation of pregnancy; Z37.0 Single live birth; O62.1 Secondary uterine inertia; Z87.891 Personal history of nicotine dependence
CPT/HCPCS: 36415; 51702; 59025; 82803; 85014; 85018; 85027; 86850; 86900; 86901; A9270-GY; J0595; J0690; J1200; J1885; J2270; J2300; J2405; J2590; J3010; J7120

== ENCOUNTER 2019-04-09 04:51 | Day surgery (SDC) | payer BC ==
[2019-04-09] MEDS ORDERED: HYDROmorphone 2 MG/ML Syringe IVPUSH ONE (05:25)
[2019-04-09] MEDS ORDERED: Sodium Chloride 0.9% 1,000 ML IV ONE (05:25)
[2019-04-09] MEDS ORDERED: Ondansetron 4 MG/2 ML SDV IVPUSH ONE (05:25)
[2019-04-09 05:46] LABS: BLOOD UREA NITROGEN,BUN 18 mg/dL (7.0-18.0); CHLORIDE,CL 104 mmol/L (98-107); GLUCOSE RANDOM 92 mg/dL (74-106); LIPASE 93 U/L (73-393); POTASSIUM,K 3.9 mmol/L (3.5-5.1); SODIUM,NA 140 mmol/L (136-145)
[2019-04-09] MEDS ORDERED: Iopamidol 755 MG/ML 200 ML Multipack Bottle IVPUSH ONE (06:14)
--- NOTE | 2019-04-09 06:44 | CT ---
INDICATION: Right lower quadrant abdominal pain. TECHNIQUE: Contrast-enhanced CT of the abdomen and pelvis. 100 cc nonionic Isovue-370 administered. FINDINGS: Clear included lung bases. The liver, spleen, pancreas, gallbladder, adrenal glands, and kidneys are within normal limits. Normal caliber abdominal aorta and iliac arteries. Normal inferior vena cava. The urinary bladder is within normal limits. Intrauterine device appropriately positioned. No adnexal masses. Small collapsing follicle left ovary image 100 series 201. Trace free fluid in the pelvis image 114 series 201 almost certainly physiologic. The appendix appears to be in a retroperitoneal location, images 64-83 series 201. The appendiceal wall enhances very subtly. The appendix measures between 5 and 7 mm in diameter. There is no periappendiceal fat stranding. The included skeleton is unremarkable. IMPRESSION: 1. Retroperitoneal appendix with subtle enhancement of the wall. No periappendiceal fat stranding. The appendix is at the upper limit of normal in terms of diameter. A subtle early appendicitis could not be entirely excluded. Clinical and laboratory correlation recommended. 2. No bowel obstruction or ileus. 3. Collapsing follicle left ovary. IUD. Trace free pelvic fluid almost certainly physiologic. Please note that all CT scans at this facility use dose modulation, iterative reconstruction, and/or weight-based dosing when appropriate to reduce radiation dose to as low as reasonably achievable. Dictated by Solomon Weems MD @ Apr 09 2019 6:42AM Signed by Dr. Solomon Weems @ Apr 09 2019 6:42AM
[2019-04-09] MEDS ORDERED: Piperacillin/Tazobactam 3.375 GM in Sodium Chloride 0.9% 50 ML IV ONE (06:52)
--- NOTE | 2019-04-09 06:55 | EDM.PDOC ---
ED HPI GENERAL MEDICAL PROBLEM - General Chief Complaint: Abdominal Pain Stated Complaint: ABD PAIN Time Seen by Provider: 04/09/19 06:55 Source of Information: Reports: Patient History Limitations: Reports: No Limitations Right Lower Abdomen Pain Score (Numeric/FACES): 10 - Related Data Allergies Allergy/AdvReac Type Severity Reaction Status Date / Time No Known Allergies Allergy Verified 04/09/19 08:37 Home Meds: Home Meds Sertraline HCl 150 mg PO BEDTIME 04/09/19 [History] buPROPion [Wellbutrin SR] 100 mg PO BEDTIME 04/09/19 [History] levonorgestreL [Mirena] 1 device VAG ONETIME 04/09/19 [History] traZODone HCl [Trazodone HCl] 0.5 tab PO BEDTIME 04/09/19 [History] Past Medical History - Past Health History Medical/Surgical History: Denies Medical/Surgical History HEENT History: Reports: None Cardiovascular History: Reports: None Respiratory History: Reports: None Gastrointestinal History: Reports: None Genitourinary History: Reports: None 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 , , 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 Musculoskeletal History: Reports: None Neurological History: Reports: None Psychiatric History: Reports: None Endocrine/Metabolic History: Reports: None Hematologic History: Reports: None Immunologic History: Reports: None Oncologic (Cancer) History: Reports: None Dermatologic History: Reports: None - Infectious Disease History Infectious Disease History: Reports: None - Past Surgical History Head Surgeries/Procedures: Reports: None HEENT Surgical History: Reports: Other (See Below) Female Surgical History: Reports: Section Other Female Surgeries/Procedures: x2 Social & Family History - Family History Family Medical History: Noncontributory - Tobacco Use Smoking Status *Q: Never Smoker Second Hand Smoke Exposure: No - Caffeine Use Caffeine Use: Reports: None - Recreational Drug Use Recreational Drug Use: No ED ROS GENERAL - Review of Systems Review Of Systems: Comprehensive ROS is negative, except as noted in HPI. Course - Vital Signs Last Recorded V/S: Last Vital Signs Temp 36.2 C 04/09/19 12:55 Pulse 73 04/09/19 13:40 Resp 14 04/09/19 13:40 BP 98/43 L 04/09/19 13:40 Pulse Ox 97 04/09/19 13:40 - Orders/Labs/Meds Orders: Active Orders 24 hr Category Date Time Status Admission Status [Patient Status] [ADT] Stat ADT 04/09/19 06:59 Active Blood Glucose Check, Bedside [RC] PRN Care 04/09/19 11:26 Active Notify Provider Vital Signs [RC] ASDIRECTED Care 04/09/19 11:26 Active Oxygen Therapy [RC] PRN Care 04/09/19 11:26 Active RT Aerosol Therapy [RC] ASDIRECTED Care 04/09/19 11:26 Active RT Aerosol Therapy [RC] ASDIRECTED Care 04/09/19 11:26 Active Ready for Discharge [RC] PER UNIT ROUTINE Care 04/09/19 13:49 Active Vital Signs [RC] Q5M Care 04/09/19 11:26 Active Regular Diet [DIET] Diet 04/09/19 Dinner Active CULTURE URINE [RM] Stat Lab 04/09/19 05:00 Received Acetaminophen/oxyCODONE [Percocet 325-5 MG] Med 04/09/19 12:15 Active 2 tab PO Q4H PRN Albuterol [Proventil Neb Soln] Med 04/09/19 11:26 Active 2.5 mg NEB ONETIME PRN Atropine [Atropine 0.1 MG/ML] Med 04/09/19 11:26 Active 0.5 mg IVPUSH ASDIRECTED PRN Atropine [Atropine 0.1 MG/ML] Med 04/09/19 11:26 Active 1 mg IVPUSH ASDIRECTED PRN Dextrose 5%-Lact Ringers w/KCl [D5 LR with 20 mEq KCl] Med 04/09/19 07:15 Active 1,000 ml IV ASDIRECTED Dextrose 50% in Water Med 04/09/19 11:26 Active 50 ml IVPUSH ASDIRECTED PRN EPINEPHrine [EPINEPHrine 1:10,000] Med 04/09/19 11:26 Active 1 mg IVPUSH ASDIRECTED PRN HYDROmorphone [Dilaudid] Med 04/09/19 11:33 Active 0.25 mg IVPUSH .Q5MIN PRN Naloxone [Narcan] Med 04/09/19 11:26 Active 0.1 mg IVPUSH ASDIRECTED PRN Ondansetron [Zofran] Med 04/09/19 11:33 Active 4 mg IVPUSH ONETIME PRN fentaNYL [Sublimaze] Med 04/09/19 11:26 Active 50 mcg IVPUSH Q5M PRN Medication Orders Albuterol (Proventil Neb Soln) 2.5 mg NEB ONETIME PRN PRN Reason: Wheezing Atropine Sulfate (Atropine 0.1 Mg/Ml) 0.5 mg IVPUSH ASDIRECTED PRN PRN Reason: Hypo-perfusion Atropine Sulfate (Atropine 0.1 Mg/Ml) 1 mg IVPUSH ASDIRECTED PRN PRN Reason: Hypo-Perfusion Dextrose/Water (Dextrose 50% In Water) 50 ml IVPUSH ASDIRECTED PRN PRN Reason: Hypoglycemia Epinephrine HCl (Epinephrine 1:10,000) 1 mg IVPUSH ASDIRECTED PRN PRN Reason: ACLS Guidelines Fentanyl (Sublimaze) 50 mcg IVPUSH Q5M PRN PRN Reason: Pain Hydromorphone HCl (Dilaudid) 0.25 mg IVPUSH .Q5MIN PRN PRN Reason: Pain (severe 7-10) Stop: 04/10/19 11:35 Potassium Cl/Dextrose/Lact Ringer's (D5 Lr With 20 Meq Kcl) 1,000 mls @ 125 mls /hr IV ASDIRECTED SARA Last Admin: 04/09/19 07:55 Dose: 125 mls/hr Naloxone HCl (Narcan) 0.1 mg IVPUSH ASDIRECTED PRN PRN Reason: Respiratory Depression Ondansetron HCl (Zofran) 4 mg IVPUSH ONETIME PRN PRN Reason: Nausea/Vomiting Oxycodone/Acetaminophen (Percocet 325-5 Mg) 2 tab PO Q4H PRN PRN Reason: Pain (moderate 4-6) Labs: Laboratory Tests 04/09/19 04/09/19 04/09/19 Range/Units 05:00 05:05 05:05 WBC 15.39 H (4.0-11.0) K/uL RBC 4.82 (4.30-5.90) M/uL Hgb 14.0 (12.0-16.0) g/dL Hct 40.9 (36.0-46.0) % MCV 84.9 (80.0-98.0) fL MCH 29.0 (27.0-32.0) pg MCHC 34.2 (31.0-37.0) g/dL RDW Std Deviation 39.0 (28.0-62.0) fl RDW Coeff of Susan 13 (11.0-15.0) % Plt Count 315 (150-400) K/uL MPV 9.90 (7.40-12.00) fL Neut % (Auto) 70.1 (48.0-80.0) % Lymph % (Auto) 18.5 (16.0-40.0) % [place] % (Auto) 9.6 (0.0-15.0) % Eos % (Auto) 1.6 (0.0-7.0) % Baso % (Auto) 0.2 (0.0-1.5) % Neut # (Auto) 10.8 H (1.4-5.7) K/uL Lymph # (Auto) 2.8 H (0.6-2.4) K/uL [place] # (Auto) 1.5 H (0.0-0.8) K/uL Eos # (Auto) 0.2 (0.0-0.7) K/uL Baso # (Auto) 0.0 (0.0-0.1) K/uL Nucleated RBC % 0.0 /100WBC Nucleated RBCs # 0 K/uL Sodium 140 (136-145) mmol/L Potassium 3.9 (3.5-5.1) mmol/L Chloride 104 (98-107) mmol/L Carbon Dioxide 27.0 (21.0-32.0) mmol/L BUN 18 (7.0-18.0) mg/dL Creatinine 0.9 (0.6-1.0) mg/dL Est Cr Clr Drug Dosing 89.45 mL/min Estimated GFR (MDRD) > 60.0 ml/min Glucose 92 (74-106) mg/dL Calcium 9.8 (8.5-10.1) mg/dL Total Bilirubin 0.4 (0.2-1.0) mg/dL AST 21 (15-37) IU/L ALT 31 (14-63) IU/L Alkaline Phosphatase 83 (46-116) U/L Total Protein 7.9 (6.4-8.2) g/dL Albumin 4.1 (3.4-5.0) g/dL Globulin 3.8 (2.6-4.0) g/dL Albumin/Globulin Ratio 1.1 (0.9-1.6) Lipase 93 (73-393) U/L HCG, Quant < 1.0 mIU/mL Urine Color YELLOW Urine Appearance SLT CLOUDY Urine pH 6.0 (5.0-8.0) Ur Specific [place] 1.020 (1.001-1.035) Urine Protein NEGATIVE (NEGATIVE) mg/dL Urine Glucose (UA) NEGATIVE (NEGATIVE) mg/dL Urine Ketones NEGATIVE (NEGATIVE) mg/dL Urine Occult Blood SMALL H (NEGATIVE) Urine Nitrite POSITIVE H (NEGATIVE) Urine Bilirubin NEGATIVE (NEGATIVE) Urine Urobilinogen 0.2 (<2.0) EU/dL Ur Leukocyte Esterase SMALL H (NEGATIVE) Urine RBC 1-2 (0-2/HPF) Urine WBC 1-2 (0-5/HPF) Ur Epithelial Cells OCCASIONAL (NONE-FEW) Urine Bacteria 1+ H (NEGATIVE) Meds: Medications Generic Name Dose Route Start Last Admin Trade Name Freq PRN Reason Stop Dose Admin Albuterol 2.5 mg 04/09/19 11:26 Proventil Neb Soln NEB ONETIME PRN Wheezing Atropine Sulfate 0.5 mg 04/09/19 11:26 Atropine 0.1 Mg/Ml IVPUSH ASDIRECTED PRN Hypo-perfusion Atropine Sulfate 1 mg 04/09/19 11:26 Atropine 0.1 Mg/Ml IVPUSH ASDIRECTED PRN Hypo-Perfusion Dextrose/Water 50 ml 04/09/19 11:26 Dextrose 50% In Water IVPUSH ASDIRECTED PRN Hypoglycemia Epinephrine HCl 1 mg 04/09/19 11:26 Epinephrine 1:10,000 IVPUSH ASDIRECTED PRN ACLS Guidelines Fentanyl 50 mcg 04/09/19 11:26 Sublimaze IVPUSH Q5M PRN Pain Hydromorphone HCl 0.25 mg 04/09/19 11:33 Dilaudid IVPUSH 04/10/19 11:35 .Q5MIN PRN Pain (severe 7-10) Potassium Cl/Dextrose/Lact Ringer's 1,000 mls @ 125 mls/hr 04/09/19 07:15 07:55 D5 Lr With 20 Meq Kcl IV 125 mls/hr ASDIRECTED SARA Administration Naloxone HCl 0.1 mg 04/09/19 11:26 Narcan IVPUSH ASDIRECTED PRN Respiratory Depression Ondansetron HCl 4 mg 04/09/19 11:33 Zofran IVPUSH ONETIME PRN Nausea/Vomiting Oxycodone/Acetaminophen 2 tab 04/09/19 12:15 Percocet 325-5 Mg PO Q4H PRN Pain (moderate 4-6) Discontinued Medications Generic Name Dose Route Start Last Admin Trade Name Yadira PRN Reason Stop Dose Admin Bupivacaine HCl Confirm 04/09/19 10:00 Sensorcaine-Mpf 0.5% Administered 04/09/19 10:01 Dose 20 ml .ROUTE .STK-MED ONE Dexamethasone Confirm 04/09/19 10:32 Dexamethasone Administered 04/09/19 10:33 Dose 20 mg .ROUTE .STK-MED ONE Ephedrine Sulfate Confirm 04/09/19 11:11 Ephedrine Sulfate Administered 04/09/19 11:12 Dose 50 mg .ROUTE .STK-MED ONE Fentanyl Confirm 04/09/19 09:02 Sublimaze Administered 04/09/19 09:03 Dose 100 mcg .ROUTE .STK-MED ONE Glycopyrrolate Confirm 04/09/19 11:33 Robinul Administered 04/09/19 11:34 Dose 0.4 mg .ROUTE .STK-MED ONE Hydromorphone HCl 1 mg 04/09/19 05:25 04/09/19 05:35 Dilaudid IVPUSH 04/09/19 05:26 1 mg ONETIME ONE Administration Sodium Chloride 1,000 mls @ 1,000 mls/hr 04/09/19 05:25 04/09/19 05:32 Normal Saline IV 04/09/19 06:24 1,000 mls/hr .Bolus ONE Administration Piperacillin Sod/Tazobactam 50 mls @ 100 mls/hr 04/09/19 06:52 04/09/19 07:54 Sod 3.375 gm/ Sodium Chloride IV 04/09/19 07:21 100 mls/hr ONETIME ONE Administration Acetaminophen Confirm 04/09/19 10:47 Ofirmev Administered 04/09/19 10:48 Dose 100 mls @ as directed .ROUTE .STK-MED ONE Iopamidol 100 ml 04/09/19 06:14 04/09/19 06:15 Isovue Multipack-370 (76%) IVPUSH 04/09/19 06:15 100 ml ONETIME ONE Administration Ketorolac Tromethamine Confirm 04/09/19 10:32 Toradol Administered 04/09/19 10:33 Dose 30 mg .ROUTE .STK-MED ONE Lidocaine Confirm 04/09/19 09:03 Xylocaine-Mpf 2% Administered 04/09/19 09:04 Dose 5 ml .ROUTE .STK-MED ONE Meperidine HCl Confirm 04/09/19 12:17 Demerol Administered 04/09/19 12:18 Dose 25 mg .ROUTE .STK-MED ONE Meperidine HCl 25 mg 04/09/19 12:23 Demerol IM 04/09/19 12:24 ONETIME ONE Meperidine HCl 12.5 mg 04/09/19 12:37 04/09/19 12:19 Demerol IM 04/09/19 12:38 12.5 mg ONETIME ONE Administration Midazolam HCl Confirm 04/09/19 09:02 Versed 1 Mg/Ml Administered 04/09/19 09:03 Dose 2 mg .ROUTE .STK-MED ONE Neostigmine Methylsulfate Confirm 04/09/19 11:33 Neostigmine Administered 04/09/19 11:34 Dose 5 mg .ROUTE .STK-MED ONE Ondansetron HCl 4 mg 04/09/19 05:25 04/09/19 05:32 Zofran IVPUSH 04/09/19 05:26 4 mg ONETIME ONE Administration Ondansetron HCl Confirm 04/09/19 10:32 Zofran Administered 04/09/19 10:33 Dose 4 mg .ROUTE .STK-MED ONE Propofol Confirm 04/09/19 09:02 Diprivan 20 Ml Administered 04/09/19 09:03 Dose 200 mg .ROUTE .STK-MED ONE Rocuronium [place] Confirm 04/09/19 10:32 Zemuron Administered 04/09/19 10:33 Dose 100 mg .ROUTE .STK-MED ONE Succinylcholine Chloride Confirm 04/09/19 10:32 Succinylcholine Chloride Administered 04/09/19 10:33 Dose 200 mg .ROUTE .STK-MED ONE Departure - Departure Time of Disposition: 14:01 Disposition: Admitted As Inpatient 64 Clinical Impression: Appendicitis Qualifiers: Appendicitis type: acute appendicitis Acute appendicitis type: unspecified acute appendicitis type Qualified Code(s): K35.80 - Unspecified acute appendicitis - Discharge Information Sepsis Event Note - Evaluation Sepsis Screening Result: No Definite Risk - Focused Exam Vital Signs: Vital Signs Temp Pulse Resp BP Pulse Ox 04/09/19 13:40 73 14 98/43 L 97 04/09/19 13:25 77 14 95/46 L 96 04/09/19 13:10 73 14 96/44 L 96 04/09/19 12:55 36.2 C 74 14 99/44 L 96 04/09/19 12:48 73 16 100/43 L 96 04/09/19 12:43 73 16 99/43 L 96 04/09/19 12:38 75 16 102/41 L 98 04/09/19 12:33 77 26 H 109/48 L 99 04/09/19 12:28 69 15 110/52 L 100 04/09/19 12:23 86 17 117/55 L 100 04/09/19 12:18 36.8 C 108 H 20 124/49 L 97 04/09/19 08:26 36 C L 63 16 99/50 L 100 04/09/19 06:30 36.7 C 82 14 100/52 L 98 04/09/19 04:54 36.9 C 104 H 22 H 128/76 97 Date Exam was Performed: 04/09/19 Time Exam was Performed: 14:12
--- NOTE | 2019-04-09 06:59 | EDM.PDOC ---
ED HPI GENERAL MEDICAL PROBLEM - General Chief Complaint: Abdominal Pain Stated Complaint: ABD PAIN Time Seen by Provider: 04/09/19 06:59 Source of Information: Reports: Patient - History of Present Illness INITIAL COMMENTS - FREE TEXT/NARRATIVE: CC abdominal pain HPI: This is a 23 yo female who presents with right lower quadrant abdominal pain pain is been intermittent over the past 4 to 5 days. 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 They checked a urinalysis that was negative as well. Patient does have some mild dysuria she has a subjective fever and nausea but no vomiting or diarrhea PMHX/PSHX: Social History: Negative for tobacco, negative for alcohol, negative for street drugs or marijuana Family history: Hypertension ROS: see chart PE: VS afebrile vital signs stable General: No apparent distress Head: Atraumatic normocephalic no lumps bumps or bruises Eyes: EOMI PERRLA Ears: TMs intact no hemotympanum no signs of infection no mastoid tenderness Nose: No epistaxis nares patent no septal wall hematoma Throat: No pharyngeal erythema or exudate no tonsillar enlargement Neck: Supple, no cervical lymphadenopathy Chest wall: No point tenderness Heart: Regular rate and rhythm without murmur gallop or rub Lungs: Clear to auscultation and percussion without rales rhonchi or wheeze Abdomen: S over McBurney's point without guarding rigidity or rebound Neck: No spinal point tenderness full range of motion in all 6 directions Back: No spinal paraspinal or CVA tenderness Extremities: full rom through out. no effusions skin: Warm dry intact no rashes neurologic: cranial nerves II through XII intact. No focal motor or sensory deficits noted MDM: Differential diagnosis: Appendicitis ovarian torsion ovarian cyst ED course: Count was elevated comprehensive metabolic profile and quantitative hCG negative CT scan demonstrates a retrocecal appendix with some inflammation. Case discussed with the general surgeon on-call who asked us to admit the patient on IV Vanex for an appendectomy later today. Patient's pain has markedly improved. Stable for admission to the floor without a rigid abdomen Diagnosis: Appendicitis Disposition: Admit Right Lower Abdomen Pain Score (Numeric/FACES): 10 - Related Data Allergies Allergy/AdvReac Type Severity Reaction Status Date / Time No Known Allergies Allergy Verified 06/29/18 08:30 Home Meds: Home Meds Sertraline HCl 100 mg PO BEDTIME 04/09/19 [History] buPROPion [Wellbutrin SR] 100 mg PO BEDTIME 04/09/19 [History] traZODone HCl [Trazodone HCl] 50 mg PO BEDTIME 04/09/19 [History] Past Medical History - Past Health History Medical/Surgical History: Denies Medical/Surgical History HEENT History: Reports: None Cardiovascular History: Reports: None Respiratory History: Reports: None Gastrointestinal History: Reports: None Genitourinary History: Reports: None 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 , , 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 Musculoskeletal History: Reports: None Neurological History: Reports: None Psychiatric History: Reports: None Endocrine/Metabolic History: Reports: None Hematologic History: Reports: None Immunologic History: Reports: None Oncologic (Cancer) History: Reports: None Dermatologic History: Reports: None - Infectious Disease History Infectious Disease History: Reports: None - Past Surgical History Head Surgeries/Procedures: Reports: None HEENT Surgical History: Reports: Other (See Below) Female Surgical History: Reports: Section Other Female Surgeries/Procedures: x2 Social & Family History - Family History Family Medical History: Noncontributory - Tobacco Use Smoking Status *Q: Never Smoker Second Hand Smoke Exposure: No - Caffeine Use Caffeine Use: Reports: None - Recreational Drug Use Recreational Drug Use: No ED ROS GENERAL - Review of Systems Review Of Systems: Comprehensive ROS is negative, except as noted in HPI. ED EXAM, GI/ABD - Physical Exam Exam: See Below Text/Narrative:: see dictation Course - Vital Signs Last Recorded V/S: Last Vital Signs Temp 36.7 C 04/09/19 06:30 Pulse 82 04/09/19 06:30 Resp 14 04/09/19 06:30 BP 100/52 L 04/09/19 06:30 Pulse Ox 98 04/09/19 06:30 - Orders/Labs/Meds Orders: Active Orders 24 hr Category Date Time Status CULTURE URINE [RM] Stat Lab 04/09/19 05:00 Received Piperacillin/Tazobactam [Piperacil-Tazobact] 3.375 gm Med 04/09/19 06:52 Ordered Sodium Chloride 0.9% [Normal Saline] 50 ml IV ONETIME Medication Orders Piperacillin Sod/Tazobactam (Sod 3.375 gm/ Sodium Chloride) 50 mls @ 100 mls/ hr IV ONETIME ONE Stop: 04/09/19 07:21 Labs: Laboratory Tests 04/09/19 04/09/19 04/09/19 Range/Units 05:00 05:05 05:05 WBC 15.39 H (4.0-11.0) K/uL RBC 4.82 (4.30-5.90) M/uL Hgb 14.0 (12.0-16.0) g/dL Hct 40.9 (36.0-46.0) % MCV 84.9 (80.0-98.0) fL MCH 29.0 (27.0-32.0) pg MCHC 34.2 (31.0-37.0) g/dL RDW Std Deviation 39.0 (28.0-62.0) fl RDW Coeff of Susan 13 (11.0-15.0) % Plt Count 315 (150-400) K/uL MPV 9.90 (7.40-12.00) fL Neut % (Auto) 70.1 (48.0-80.0) % Lymph % (Auto) 18.5 (16.0-40.0) % [place] % (Auto) 9.6 (0.0-15.0) % Eos % (Auto) 1.6 (0.0-7.0) % Baso % (Auto) 0.2 (0.0-1.5) % Neut # (Auto) 10.8 H (1.4-5.7) K/uL Lymph # (Auto) 2.8 H (0.6-2.4) K/uL [place] # (Auto) 1.5 H (0.0-0.8) K/uL Eos # (Auto) 0.2 (0.0-0.7) K/uL Baso # (Auto) 0.0 (0.0-0.1) K/uL Nucleated RBC % 0.0 /100WBC Nucleated RBCs # 0 K/uL Sodium 140 (136-145) mmol/L Potassium 3.9 (3.5-5.1) mmol/L Chloride 104 (98-107) mmol/L Carbon Dioxide 27.0 (21.0-32.0) mmol/L BUN 18 (7.0-18.0) mg/dL Creatinine 0.9 (0.6-1.0) mg/dL Est Cr Clr Drug Dosing 89.45 mL/min Estimated GFR (MDRD) > 60.0 ml/min Glucose 92 (74-106) mg/dL Calcium 9.8 (8.5-10.1) mg/dL Total Bilirubin 0.4 (0.2-1.0) mg/dL AST 21 (15-37) IU/L ALT 31 (14-63) IU/L Alkaline Phosphatase 83 (46-116) U/L Total Protein 7.9 (6.4-8.2) g/dL Albumin 4.1 (3.4-5.0) g/dL Globulin 3.8 (2.6-4.0) g/dL Albumin/Globulin Ratio 1.1 (0.9-1.6) Lipase 93 (73-393) U/L HCG, Quant < 1.0 mIU/mL Urine Color YELLOW Urine Appearance SLT CLOUDY Urine pH 6.0 (5.0-8.0) Ur Specific [place] 1.020 (1.001-1.035) Urine Protein NEGATIVE (NEGATIVE) mg/dL Urine Glucose (UA) NEGATIVE (NEGATIVE) mg/dL Urine Ketones NEGATIVE (NEGATIVE) mg/dL Urine Occult Blood SMALL H (NEGATIVE) Urine Nitrite POSITIVE H (NEGATIVE) Urine Bilirubin NEGATIVE (NEGATIVE) Urine Urobilinogen 0.2 (<2.0) EU/dL Ur Leukocyte Esterase SMALL H (NEGATIVE) Urine RBC 1-2 (0-2/HPF) Urine WBC 1-2 (0-5/HPF) Ur Epithelial Cells OCCASIONAL (NONE-FEW) Urine Bacteria 1+ H (NEGATIVE) Meds: Medications Generic Name Dose Route Start Last Admin Trade Name Freq PRN Reason Stop Dose Admin Piperacillin Sod/Tazobactam 50 mls @ 100 mls/hr 04/09/19 06:52 Sod 3.375 gm/ Sodium Chloride IV 04/09/19 07:21 ONETIME ONE Discontinued Medications Generic Name Dose Route Start Last Admin Trade Name Freq PRN Reason Stop Dose Admin Hydromorphone HCl 1 mg 04/09/19 05:25 04/09/19 05:35 Dilaudid IVPUSH 04/09/19 05:26 1 mg ONETIME ONE Administration Sodium Chloride 1,000 mls @ 1,000 mls/hr 04/09/19 05:25 04/09/19 05:32 Normal Saline IV 04/09/19 06:24 1,000 mls/hr .Bolus ONE Administration Iopamidol 100 ml 04/09/19 06:14 04/09/19 06:15 Isovue Multipack-370 (76%) IVPUSH 04/09/19 06:15 100 ml ONETIME ONE Administration Ondansetron HCl 4 mg 04/09/19 05:25 04/09/19 05:32 Zofran IVPUSH 04/09/19 05:26 4 mg ONETIME ONE Administration Departure - Departure Time of Disposition: 06:57 Disposition: Admitted As Inpatient 64 Clinical Impression: Appendicitis Qualifiers: Appendicitis type: acute appendicitis Acute appendicitis type: unspecified acute appendicitis type Qualified Code(s): K35.80 - Unspecified acute appendicitis - Discharge Information Referrals: Carol Kumar DO [Primary Care Provider] - Sepsis Event Note - Evaluation Sepsis Screening Result: No Definite Risk - Focused Exam Vital Signs: Vital Signs Temp Pulse Resp BP Pulse Ox 04/09/19 06:30 36.7 C 82 14 100/52 L 98 04/09/19 04:54 36.9 C 104 H 22 H 128/76 97 Date Exam was Performed: 04/09/19 Time Exam was Performed: 06:53 - My Orders Last 24 Hours: My Active Orders 04/09/19 06:52 Piperacillin/Tazobactam [Piperacil-Tazobact] 3.375 gm Sodium Chloride 0.9% [ Normal Saline] 50 ml IV ONETIME - Assessment/Plan Last 24 Hours: My Active Orders 04/09/19 06:52 Piperacillin/Tazobactam [Piperacil-Tazobact] 3.375 gm Sodium Chloride 0.9% [ Normal Saline] 50 ml IV ONETIME
[2019-04-09] MEDS ORDERED: Dextrose 5%-Lact Ringers w/KCl 1,000 ML IV SCH (07:15)
[2019-04-09] MEDS ORDERED: Lactated Ringers 1,000 ML IV ONE (07:40)
--- NOTE | 2019-04-09 08:08 | PCM.PREANE ---
Preanesthetic Assessment - Anesthesia/Transfusion/Family Hx Anesthesia History: Prior Anesthesia Reaction Other Type of Anesthesia Reaction Comment: Patient states she had a hard time breathing Family History of Anesthesia Reaction: No Transfusion History: No Prior Transfusion(s) Intubation History: Unknown - Review of Systems General: No Symptoms Pulmonary: No Symptoms Cardiovascular: No Symptoms Gastrointestinal: Abdominal Pain Neurological: No Symptoms Other: Reports: None - Physical Assessment Vital Signs: Last Vital Signs Temp 36.7 C 04/09/19 06:30 Pulse 82 04/09/19 06:30 Resp 14 04/09/19 06:30 BP 100/52 L 04/09/19 06:30 Pulse Ox 98 04/09/19 06:30 Height: 5 ft 6 in Weight: 60.781 kg ASA Class: 1E Mental Status: Alert & Oriented x3 Airway Class: Mallampati = 2 Dentition: Reports: Normal Dentition Thyro-Mental Finger Breadths: 3 Mouth Opening Finger Breadths: 3 ROM/Head Extension: Full Lungs: Clear to Auscultation, Normal Respiratory Effort Cardiovascular: Regular Rate, Regular Rhythm - Lab Values: Laboratory Last Values WBC 15.39 K/uL (4.0-11.0) H 04/09/19 05:05 RBC 4.82 M/uL (4.30-5.90) 04/09/19 05:05 Hgb 14.0 g/dL (12.0-16.0) 04/09/19 05:05 Hct 40.9 % (36.0-46.0) 04/09/19 05:05 MCV 84.9 fL (80.0-98.0) 04/09/19 05:05 MCH 29.0 pg (27.0-32.0) 04/09/19 05:05 MCHC 34.2 g/dL (31.0-37.0) 04/09/19 05:05 RDW Std Deviation 39.0 fl (28.0-62.0) 04/09/19 05:05 RDW Coeff of Susan 13 % (11.0-15.0) 04/09/19 05:05 Plt Count 315 K/uL (150-400) 04/09/19 05:05 MPV 9.90 fL (7.40-12.00) 04/09/19 05:05 Neut % (Auto) 70.1 % (48.0-80.0) 04/09/19 05:05 Lymph % (Auto) 18.5 % (16.0-40.0) 04/09/19 05:05 [place] % (Auto) 9.6 % (0.0-15.0) 04/09/19 05:05 Eos % (Auto) 1.6 % (0.0-7.0) 04/09/19 05:05 Baso % (Auto) 0.2 % (0.0-1.5) 04/09/19 05:05 Neut # (Auto) 10.8 K/uL (1.4-5.7) H 04/09/19 05:05 Lymph # (Auto) 2.8 K/uL (0.6-2.4) H 04/09/19 05:05 [place] # (Auto) 1.5 K/uL (0.0-0.8) H 04/09/19 05:05 Eos # (Auto) 0.2 K/uL (0.0-0.7) 04/09/19 05:05 Baso # (Auto) 0.0 K/uL (0.0-0.1) 04/09/19 05:05 Nucleated RBC % 0.0 /100WBC 04/09/19 05:05 Nucleated RBCs # 0 K/uL 04/09/19 05:05 Sodium 140 mmol/L (136-145) 04/09/19 05:05 Potassium 3.9 mmol/L (3.5-5.1) 04/09/19 05:05 Chloride 104 mmol/L (98-107) 04/09/19 05:05 Carbon Dioxide 27.0 mmol/L (21.0-32.0) 04/09/19 05:05 BUN 18 mg/dL (7.0-18.0) 04/09/19 05:05 Creatinine 0.9 mg/dL (0.6-1.0) 04/09/19 05:05 Est Cr Clr Drug Dosing 89.45 mL/min 04/09/19 05:05 Estimated GFR (MDRD) > 60.0 ml/min 04/09/19 05:05 Glucose 92 mg/dL (74-106) 04/09/19 05:05 Calcium 9.8 mg/dL (8.5-10.1) 04/09/19 05:05 Total Bilirubin 0.4 mg/dL (0.2-1.0) 04/09/19 05:05 AST 21 IU/L (15-37) 04/09/19 05:05 ALT 31 IU/L (14-63) 04/09/19 05:05 Alkaline Phosphatase 83 U/L (46-116) 04/09/19 05:05 Total Protein 7.9 g/dL (6.4-8.2) 04/09/19 05:05 Albumin 4.1 g/dL (3.4-5.0) 04/09/19 05:05 Globulin 3.8 g/dL (2.6-4.0) 04/09/19 05:05 Albumin/Globulin Ratio 1.1 (0.9-1.6) 04/09/19 05:05 Lipase 93 U/L (73-393) 04/09/19 05:05 HCG, Quant < 1.0 mIU/mL 04/09/19 05:05 Urine Color YELLOW 04/09/19 05:00 Urine Appearance SLT CLOUDY 04/09/19 05:00 Urine pH 6.0 (5.0-8.0) 04/09/19 05:00 Ur Specific [place] 1.020 (1.001-1.035) 04/09/19 05:00 Urine Protein NEGATIVE mg/dL (NEGATIVE) 04/09/19 05:00 Urine Glucose (UA) NEGATIVE mg/dL (NEGATIVE) 04/09/19 05:00 Urine Ketones NEGATIVE mg/dL (NEGATIVE) 04/09/19 05:00 Urine Occult Blood SMALL (NEGATIVE) H 04/09/19 05:00 Urine Nitrite POSITIVE (NEGATIVE) H 04/09/19 05:00 Urine Bilirubin NEGATIVE (NEGATIVE) 04/09/19 05:00 Urine Urobilinogen 0.2 EU/dL (<2.0) 04/09/19 05:00 Ur Leukocyte Esterase SMALL (NEGATIVE) H 04/09/19 05:00 Urine RBC 1-2 (0-2/HPF) 04/09/19 05:00 Urine WBC 1-2 (0-5/HPF) 04/09/19 05:00 Ur Epithelial Cells OCCASIONAL (NONE-FEW) 04/09/19 05:00 Urine Bacteria 1+ (NEGATIVE) H 04/09/19 05:00 - Allergies Allergies/Adverse Reactions: Allergies Allergy/AdvReac Type Severity Reaction Status Date / Time No Known Allergies Allergy Verified 06/29/18 08:30 - Blood Blood Available: No - Anesthesia Plan Pre-Op Medication Ordered: None - Acknowledgements Anesthesia Type Planned: General Anesthesia Pt an Appropriate Candidate for the Planned Anesthesia: Yes Alternatives and Risks of Anesthesia Discussed w Pt/Guardian: Yes Pt/Guardian Understands and Agrees with Anesthesia Plan: Yes PreAnesthesia Questionnaire - Past Health History Medical/Surgical History: Denies Medical/Surgical History HEENT History: Reports: None Cardiovascular History: Reports: None Respiratory History: Reports: None Gastrointestinal History: Reports: Other (See Below) (acute appenicitis at present time) Genitourinary History: Reports: None DOMINATRIX History: Reports: Ectopic , , Spontaneous Musculoskeletal History: Reports: None Neurological History: Reports: None Psychiatric History: Reports: None Endocrine/Metabolic History: Reports: None Hematologic History: Reports: None Immunologic History: Reports: None Oncologic (Cancer) History: Reports: None Dermatologic History: Reports: None - Infectious Disease History Infectious Disease History: Reports: None - Past Surgical History Head Surgeries/Procedures: Reports: None HEENT Surgical History: Reports: Oral Surgery Female Surgical History: Reports: Section Other Female Surgeries/Procedures: x2 - SUBSTANCE USE Smoking Status *Q: Never Smoker Second Hand Smoke Exposure: No Recreational Drug Use History: No - HOME MEDS Home Medications: Home Meds Sertraline HCl 100 mg PO BEDTIME 04/09/19 [History] buPROPion [Wellbutrin SR] 100 mg PO BEDTIME 04/09/19 [History] traZODone HCl [Trazodone HCl] 50 mg PO BEDTIME 04/09/19 [History] - CURRENT (IN HOUSE) MEDS Current Meds: Current Medications Potassium Cl/Dextrose/Lact Ringer's (D5 Lr With 20 Meq Kcl) 1,000 mls @ 125 mls /hr IV ASDIRECTED SARA Last Admin: 04/09/19 07:55 Dose: 125 mls/hr Discontinued Medications Hydromorphone HCl (Dilaudid) 1 mg IVPUSH ONETIME ONE Stop: 04/09/19 05:26 Last Admin: 04/09/19 05:35 Dose: 1 mg Sodium Chloride (Normal Saline) 1,000 mls @ 1,000 mls/hr IV .Bolus ONE Stop: 04/09/19 06:24 Last Admin: 04/09/19 05:32 Dose: 1,000 mls/hr Piperacillin Sod/Tazobactam (Sod 3.375 gm/ Sodium Chloride) 50 mls @ 100 mls/ hr IV ONETIME ONE Stop: 04/09/19 07:21 Last Admin: 04/09/19 07:54 Dose: 100 mls/hr Iopamidol (Isovue Multipack-370 (76%)) 100 ml IVPUSH ONETIME ONE Stop: 04/09/19 06:15 Last Admin: 04/09/19 06:15 Dose: 100 ml Ondansetron HCl (Zofran) 4 mg IVPUSH ONETIME ONE Stop: 04/09/19 05:26 Last Admin: 04/09/19 05:32 Dose: 4 mg
[2019-04-09] MEDS ORDERED: Midazolam 1 MG/ML 2 ML SDV ONE (09:02)
[2019-04-09] MEDS ORDERED: fentaNYL 100 MCG/2 ML SDV ONE (09:02)
[2019-04-09] MEDS ORDERED: Propofol 200 MG/20 ML SDV ONE (09:02)
[2019-04-09] MEDS ORDERED: Lidocaine 2% 5 ML SDV ONE (09:03)
[2019-04-09] MEDS ORDERED: Bupivacaine 0.5% 10 ML SDV ONE (10:00)
[2019-04-09] MEDS ORDERED: Ketorolac 30 MG/ML SDV ONE (10:32)
[2019-04-09] MEDS ORDERED: Rocuronium 100 MG/10 ML Syringe ONE (10:32)
[2019-04-09] MEDS ORDERED: Ondansetron 4 MG/2 ML SDV ONE (10:32)
[2019-04-09] MEDS ORDERED: Dexamethasone 4 MG/ML 5 ML MDV ONE (10:32)
[2019-04-09] MEDS ORDERED: ePHEDrine 50 MG/ML SDV ONE (11:11)
[2019-04-09] MEDS ORDERED: fentaNYL 100 MCG/2 ML SDV IVPUSH PRN (11:26)
[2019-04-09] MEDS ORDERED: Atropine 0.1 MG/ML 10 ML Syringe IVPUSH PRN ×2 (11:26)
[2019-04-09] MEDS ORDERED: Naloxone 0.4 MG/ML Syringe IVPUSH PRN (11:26)
[2019-04-09] MEDS ORDERED: Albuterol 0.083% 2.5 MG/3 ML Neb Soln NEB PRN (11:26)
[2019-04-09] MEDS ORDERED: 50% Dextrose in Water 50 ML Syringe IVPUSH PRN (11:26)
[2019-04-09] MEDS ORDERED: EPINEPHrine 1:10,000 1 MG/10 ML Syringe IVPUSH PRN (11:26)
[2019-04-09] MEDS ORDERED: HYDROmorphone 2 MG/ML Syringe IVPUSH PRN (11:33)
[2019-04-09] MEDS ORDERED: Ondansetron 4 MG/2 ML SDV IVPUSH PRN (11:33)
[2019-04-09] MEDS ORDERED: Glycopyrrolate 0.2 MG/ML SDV ONE (11:33)
[2019-04-09] MEDS ORDERED: Neostigmine Methylsulfate 1 MG/ML 5 ML Syringe ONE (11:33)
--- NOTE | 2019-04-09 12:11 | PCM.OPNOTE ---
<Edward Melendez M - Last Filed: 04/09/19 12:06> - General Post-Op/Procedure Note Date of Surgery/Procedure: 04/09/19 Operative Procedure(s): Laparoscopic appendectomy Pre Op Diagnosis: Ruptured retrocecal appendicitis Post-Op Diagnosis: Ruptured retrocecal appendicitis Anesthesia Technique: General LMA Primary Surgeon: Kasey Sweeney Fluid Replacement, Intraop: 1,500 Output, Urine Amount: 250 EBL in mLs: 5 Complications: None Condition: Stable <Kasey Sweeney - Last Filed: 04/09/19 12:17> - General Post-Op/Procedure Note Findings: Acute appendicitis. Appendix retrocecal and NOT perforated. Pre Op Diagnosis: Acute appendicitis Post-Op Diagnosis: Acute appendicitis, non-ruptured Anesthesia Technique: General ET Tube Fluid Replacement, Intraop: 1,600 Free Text/Narrative:: Intake & Output 04/08/19 04/09/19 04/09/19 22:59 06:59 14:59 Intake Total 1500 Output Total 250 Balance 1250
[2019-04-09] MEDS ORDERED: Acetaminophen/oxyCODONE 325-5 MG Tab PO PRN (12:15)
[2019-04-09] MEDS ORDERED: Meperidine PF 25 MG/ML Syringe ONE (12:17)
[2019-04-09] MEDS ORDERED: Meperidine PF 25 MG/ML Syringe IM ONE ×2 (12:23→12:37)
--- NOTE | 2019-04-09 12:50 | PCM.POSTAN ---
POST ANESTHESIA ASSESSMENT - MENTAL STATUS Mental Status: Alert, Oriented - VITAL SIGNS Vital Signs: Last Vital Signs Temp 36.8 C 04/09/19 12:18 Pulse 75 04/09/19 12:38 Resp 16 04/09/19 12:38 BP 102/41 L 04/09/19 12:38 Pulse Ox 98 04/09/19 12:38 - RESPIRATORY Respiratory Status: Respiratory Rate WNL, Airway Patent, O2 Saturation Stable - CARDIOVASCULAR CV Status: Pulse Rate WNL, Blood Pressure Stable - GASTROINTESTINAL GI Status: No Symptoms - PAIN Pain Score: 0 - POST OP HYDRATION Hydration Status: Adequate & Stable - OBSERVATIONS Free Text/Narrative:: The patient tolerated the procedure well. There were no anesthetic complications this time. Discharge per criteria.
--- NOTE | 2019-04-09 15:00 | PCM48HPAN ---
Post Anesthesia Note - EVALUATION WITHIN 48HRS OF ANESTHETIC Vital Signs in Normal Range: Yes Patient Participated in Evaluation: Yes Respiratory Function Stable: Yes Airway Patent: Yes Cardiovascular Function Stable: Yes Hydration Status Stable: Yes Pain Control Satisfactory: Yes Nausea and Vomiting Control Satisfactory: Yes Mental Status Recovered: Yes Vital Signs: Last Vital Signs Temp 36.2 C 04/09/19 12:55 Pulse 73 04/09/19 13:40 Resp 14 04/09/19 13:40 BP 98/43 L 04/09/19 13:40 Pulse Ox 97 04/09/19 13:40 - COMMENTS/OBSERVATIONS Free Text/Narrative:: Discharge home per criteria.
--- NOTE | 2019-04-09 15:26 | PCM.SN ---
- Free Text/Narrative Note: Patient wanted to stay overnight to get rest. I discussed the reasons why we admit patient's overnight. The patient changed her mind and wanted to go home. However, I told the patient that I will call Dr. Sweeney and make her aware. After speaking with Dr. Sweeney it was agreed that the patient can go home, and there is no need to admit overnight. The patient's vitals are stable and she is tolerating po, and denies pain at this time. She wants to go home now, and states that she feels much better.
--- NOTE | 2019-04-10 11:10 | OR ---
SURGEON: KASEY SWEENEY MD DATE OF PROCEDURE: 04/09/2019 PREOPERATIVE DIAGNOSIS: Acute appendicitis. POSTOPERATIVE DIAGNOSIS: Acute appendicitis. PROCEDURE PERFORMED: Laparoscopic appendectomy. PRIMARY SURGEON: Kasey Sweeney MD. ANESTHESIA: General endotracheal anesthesia. FLUIDS: 1500 mL of crystalloid. ESTIMATED BLOOD LOSS: 5 mL. URINE OUTPUT: 250 mL. FINDINGS: Acutely enlarged and inflamed appendix with no evidence of rupture. COMPLICATIONS: None. INDICATIONS: The patient is a 23-year-old female who presents with 2 days of right lower quadrant abdominal pain. Workup in the emergency room revealed a white count of 15,[address] scan of the abdomen and pelvis showed an enlarged and slightly inflamed retrocecal appendix consistent with an early appendicitis. The patient's clinical exam fits this picture. The decision was made to proceed with a laparoscopic, possible open, appendectomy. I explained the procedure; expected perioperative course; and the risks including bleeding, infection, or damage to surrounding structures. The patient verbalized understanding and wishes to proceed. PROCEDURE IN DETAIL: The patient was brought into the OR and placed on the OR table in supine position. A time-out was completed verifying the patient's name, age, date of , allergies, and procedure to be performed. General endotracheal anesthesia was induced. The patient's left arm was tucked to the side and a Singleton catheter was placed. The abdomen was prepped and draped in usual standard fashion. I anesthetized an area 2 fingerbreadths below the left subcostal margin in the midclavicular line. An 11 blade was used to make a 1 cm incision over this area. A 5 mm optical trocar was used to gain entry into the left upper quadrant under direct visualization. All layers of the abdominal wall were visualized upon entry. A 5 mm 30-degree scope was then inserted in the abdomen after it was insufflated, and I inspected the area underneath my initial trocar placement. No damage to surrounding structures was noted. A 5 mm trocar was placed under direct visualization just left and lateral to the umbilicus. A 12 mm trocar was placed in the left lower quadrant under direct visualization as well. Upon inspection of the abdomen, the patient was noted to have a small ruptured ovarian follicle/cyst on the left ovary. I turned my attention to the right lower quadrant. I identified the cecum. I followed the tenia down to the base of the appendix. The appendix was retrocecal, and I was able to rotate the colon medially, which then exposed an enlarged and slightly inflamed appendix consistent with acute appendicitis. The tip of the appendix was grasped, and using a [place] dissector and a Harmonic scalpel device, I began to take the appendiceal mesentery down from distal to proximal, taking care not to injure any structures surrounding this area. Once the appendix was completely freed from the appendiceal mesentery down to the base, a photograph was taken of the appendix. I also took a photograph of the patient's left ovary. I then brought an endoscopic stapling device into the field. I stapled and transected across the base of the appendix using a 45 mm blue load of mary. The appendix was then placed in an Endo Catch bag and removed through the 12 mm port site. The 12 mm port was placed back in the abdomen, and I inspected my operative field. It was hemostatic with no evidence of any bleeding. There was no evidence of any purulent fluid and so no irrigation was performed. I then removed the 12 mm trocar and closed the fascia at this site with an interrupted 0 Vicryl suture using a Pablo-Tamanna device. The 5 mm trocars were then removed under direct visualization, the abdomen allowed to desufflate. The subcutaneous fat layer was closed at the 12 mm trocar site with interrupted 3-0 Vicryl suture. The skin was closed with a running 4-0 Monocryl stitch. The 5 mm trocar sites were closed with interrupted 4-0 Monocryl sutures. Steri-Strips and sterile dressings were applied. The patient tolerated the procedure well and was transferred to the PACU in stable condition. All counts were complete and correct at the end of the case. CALEB / GONSALO /[id number]
== END 2019-04-09 16:14 | disposition home or self-care (01) ==
LOC: MW.ED 04:51 → MW.SDS 07:39
PROVIDERS: ATTEND Surgery
DX: K35.80 Unspecified acute appendicitis (principal)
CPT/HCPCS: 36415; 44970; 74177; 80053; 81001; 83690; 84702; 85025; 87086; 87088; 87186; 96361; 96374; 96375; 99285; A9270; J0131; J0330; J1100; J1170; J1885; J2001; J2175; J2250; J2405; J2543; J2704; J3010; J3480; J3490; J7030; J7050; J7120; Q9967